=== PATIENT | female | born 1955 | race Caucasian/White ===

== ENCOUNTER 2017-10-16 11:57 | Day surgery (SDC) | payer OTHER ==
[2017-10-16] MEDS ORDERED: ALBUTEROL 3 ML DEYVIAL ONE (13:07)
[2017-10-16] MEDS ORDERED: EPINEPHrine 1 MG/ML INJ ONE (13:07)
[2017-10-16] MEDS ORDERED: fentaNYL 100 MCG/2 ML INJ ONE (13:08)
[2017-10-16] MEDS ORDERED: MIDAZOLAM 2 MG/2 ML VIAL ONE (13:08)
[2017-10-16] MEDS ORDERED: LIDOCAINE 2% JELLY 5 ML TUBE ONE (13:08)
[2017-10-16] MEDS ORDERED: LIDOCAINE 1% 300 MG/30 ML SDV ONE (13:08)
--- NOTE | 2017-10-16 13:37 | PDPROPOC ---
Sedation Plan of Care Sedation Plan of Care: vital signs stable, mental status noted, patient educated of risks, benefits, alternatives, patient can tolerate sedation ASA Classification: ASA 2 Planned drugs: fentanyl, midazolam Mallampati Score: Class 2 Mallampati Reference Image: Patient passed 3-3-2 rule?: Yes
--- NOTE | 2017-10-16 13:38 | PDHPUP ---
History & Physical Update H&P update statement: This history and physical update is based on an assessment of the patient which was completed after admission or registration (within 24 hours), but prior to the surgery/procedure. H&P update: H&P reviewed & patient examined, no change in patient's condition since H&P completed
--- NOTE | 2017-10-16 14:05 | BVPULMO ---
[facility]- Pulmonology Patient Name: Josey Fu Procedure Date: 10/16/2017 1:22 PM Patient Type: Outpatient Attending MD/ER Physician: Isidoro Tabares MD Procedure: Bronchoscopy Indications: Multiple pulmonary nodules Providers: Isidoro Tabares MD Medicines: Lidocaine applied to nares and subglottic space, Lidocaine 2% Nebulizer 2.5 mL, Fentanyl 100 mcg IV, Midazolam 4 mg IV, Oxygen 5 L/min Complications: No immediate complications Procedure: After informed consent, a time out was performed. N95 masks were worn, and the procedure was done in a negative pressure room. The patient was given appropria te topical anesthesia and intravenous sedation. The fiberopic bronchoscope was pas sed via a bite block orally into the larynx and subsequently into the lower trachea bronchial tree. Throughout the procedure, the patient's blood pressure, pulse, and oxygen saturations were monitored continuously. The Bronchoscope (Video) was introduced through the mouth and advanced to the tracheobronchial tree of both lungs. The procedure was accomplished without difficulty. The patient tolerated the procedure well. The total duration of the procedure was 20 minutes. Total fluoroscopy time was 2 minutes. Findings: The oropharynx appears normal. The larynx appears normal. The vocal cords appea r normal. The subglottic space is normal. The trachea is of normal caliber. The c haris is sharp. The tracheobronchial tree was examined to at least the first subsegme ntal level. Bronchial mucosa and anatomy are normal; there are no endobronchial lesi ons, and no secretions. Transbronchial biopsies of a nodule were performed in the right lower lobe usin g alligator forceps and sent for histopathology examination. The procedure was gu ided by fluoroscopy. Transbronchial biopsy technique was selected because the sampli ng site was not visible endoscopically. Five biopsy passes were performed. Five bi opsy samples were obtained. Bronchoalveolar lavage was performed in the RLL anterior basal segment (B8), in the RLL lateral basal segment (B9) and in the RLL posterior basal segment (B10) of the lung and sent for cell count, bacterial culture, viral smears & culture, and fu ngal & AFB analysis and cytology. 60 mL of fluid were instilled. 40 mL were returned . The return was blood-tinged. There were no mucoid plugs in the return fluid. Post Op Diagnosis: - Multiple pulmonary nodules - The airway examination was normal. - Transbronchial lung biopsies were performed. - Bronchoalveolar lavage was performed. Estimated Blood Loss: Estimated blood loss was minimal. Recommendation: - Follow up with bronchoscopist in 3-4 weeks. - Await BAL and biopsy results. Attending Participation: I personally performed the entire procedure. Isidoro Tabares MD Isidoro Tabares MD 10/16/2017 2:05:27 PM This report has been signed electronicallyThomas MD Rayshawn Number of Addenda: 0 Note Initiated On: 10/16/2017 1:22 PM [email or web address]
[2017-10-16 15:14] VITALS: BP 113/76
== END 2017-10-16 15:16 | disposition home or self-care (01) ==
LOC: FSGY 11:57
PROVIDERS: ATTEND Internal Medicine Pulmonary Disease
PROC: 0B968ZX Drainage of Right Lower Lobe Bronchus, Via Natural or Artificial Opening Endoscopic, Diagnostic (ICD-10-PCS; principal; 2017-10-16 13:30)
PROC: 0BBF8ZX Excision of Right Lower Lung Lobe, Via Natural or Artificial Opening Endoscopic, Diagnostic (ICD-10-PCS; principal; 2017-10-16 13:30)
DX: R91.8 Other nonspecific abnormal finding of lung field (principal); J18.9 Pneumonia, unspecified organism; M79.7 Fibromyalgia; G89.29 Other chronic pain; M85.80 Other specified disorders of bone density and structure, unspecified site; Z87.890 Personal history of sex reassignment
CPT/HCPCS: J0171; J2250; J3010; J7613

== ENCOUNTER → 2018-04-16 | Outpatient (CLI) | payer OTHER | LOC: FIMAGING 10:50 | PROVIDERS: ATTEND Internal Medicine Pulmonary Disease | DX: J84.9 Interstitial pulmonary disease, unspecified (principal); J43.2 Centrilobular emphysema; F17.200 Nicotine dependence, unspecified, uncomplicated; I25.10 Atherosclerotic heart disease of native coronary artery without angina pectoris; M79.7 Fibromyalgia; K44.9 Diaphragmatic hernia without obstruction or gangrene; E04.1 Nontoxic single thyroid nodule; Z79.52 Long term (current) use of systemic steroids ==

== ENCOUNTER → 2018-09-18 | Outpatient (CLI) | payer OTHER | LOC: CIMAGING 11:55 | PROVIDERS: ATTEND Internal Medicine | DX: E04.1 Nontoxic single thyroid nodule (principal) | CPT/HCPCS: 76536-PO ==

== ENCOUNTER → 2018-10-14 | Outpatient (CLI) | payer OTHER | LOC: EMCIMAGING 12:34 ==

== ENCOUNTER → 2018-10-16 | Outpatient (CLI) | payer OTHER | LOC: FIMAGING 12:24 ==